=== PATIENT | female | born 1985 | race Caucasian/White ===

== ENCOUNTER 2023-07-01 10:10 | Emergency (ER) | payer BC, SELFPAY ==
[2023-07-01 10:12] VITALS: BP 115/77
[2023-07-01 11:01] VITALS: BP 115/62
[2023-07-01 11:03] VITALS: BMI 22.9
[2023-07-01 11:09] LABS: % Basophils 0.7 % (0-2); % Eosinophils 0.7 % (0-6); % Immature Granulocytes 0.2 % (0-0.5); % Lymphocytes 35.1 % (20.5-51.1); % Monocytes 6.1 % (1.7-9.3); % Neutrophils 57.2 % (42.2-75.2); Absolute Lymphocytes 1.5 10^3/uL (1.2-3.4); Absolute Monocytes 0.3 10^3/uL (0.1-0.6); Absolute Neutrophils 2.4 10^3/uL (1.4-6.5); Hematocrit 35.8 % (37.0-47.0); Hemoglobin 12.4 g/dL (12.0-16.0); Mean Corp Hgb Conc. 34.6 g/dL (33.0-37.0); Mean Corpuscular Hgb 28.8 pg (27.0-31.0); Mean Corpuscular Volume 83.1 fL (81.0-99.0); Mean Platelet Volume 10.5 fL (7.4-10.4); Nucleated Red Blood Cells % 0 %; Platelet Count 164 10^3/uL (130-400); Red Blood Cell Count 4.31 10^6/uL (4.20-5.40); Red Cell Dist. Width 13.8 % (11.5-14.5); White Blood Cell Count 4.3 10^3/uL (4.8-10.8)
[2023-07-01 11:23] LABS: ALT (SGPT) 20 U/L (0-35); AST (SGOT) 26 U/L (14-36); Albumin 4.2 g/dl (3.5-5.0); Alkaline Phosphatase 47 U/L (38-126); Blood Urea Nitrogen 13 mg/dl (7-17); Calcium 9.7 mg/dl (8.4-10.2); Carbon Dioxide 24 mmol/L (22-30); Chloride 106 mmol/L (98-107); Estimated Creatinine Clearance > 125 ml/min; Glucose 95 mg/dl (70-99); Sodium 135 mmol/L (135-145); eGFR > 60.00
--- NOTE | 2023-07-01 11:45 | ED.GENMED ---
History of Present Illness
General
Chief Complaint: Numbness
Source: patient
Exam Limitations: none
Time Seen by Provider: 07/01/23 11:02
Nursing documentation reviewed up to this point in time: agreed with
Travel History
Have you had any contact with someone who has COVID-19?: No
Do you have any symptoms of coronavirus? Fever > 100 degrees, chills, cough, shortness of breath, sore throat, loss of taste or smell, muscle aches, or headache?: No
History of Present Illness
History of Present Illness:
37-year-old female with a history of Wenke Bach
but has been cleared by cards
here with left shoulder pain and some numbness this morning when she woke
she feelss it mostly in the shoulder and slightly in the left forearm as well (numbness)
she has no neck pain but does have chronic 'loss of lordosis in my neck.' but no known DDD
she has not hda fever, chills, weakness, cp, sob
but she did also feel like her heart rate may have been elevated, though she checked her apple watch and it wa snormal
she wanted to be checked because of her av block history
pt also recnetly had a bite in her left wrist that she went to for, because there was a small black spot in it
they dug it out and the following day she had some redness aroudn it so she was put empirically on doxy while they wait for lyme titer
no h/o lyme in the past
no syncope, fever, chills.
Past History
Past History
ED Past Medical History: Arrthythmia (Wenchkebach ) and Other (Ulcers)
ED Past Surgical History: Gynecological (Endometriosis surgery, Ovarian cyst) and Other (Skin removal from abd. )
Social History
Tobacco: Non-smoker
Alcohol: None
Personal:
Living: with family
Review of Systems
Review of Systems
Allergies reviewed?: Yes
All Other Systems: Not applicable
Phy Exam
Physical Exam
Physical Exam:
GENERAL: Alert , in no apparent distress
HEAD: NCAT
EYE: pupils equal and reactive, no nystagmus, no photophobia
NECK: Supple,full rom, nontender midline, mild L trapezius tenderness
ENT: o/p clr, mmm.
CARDIAC: Regular rate and rhythm . no edema no murmur
LUNGS: Clear breath sounds bilaterally, no acute respiratory distress, no wheezes/rales/rhonchi
ABDOMEN: Soft, without focal tenderness, no r/g, no cvat
NEUROLOGICAL: Alert and orientedx 4, cn intact, no facial asymmetry, 5/5 strength in UE/LE, sensation intact, romberg neg, ambulates without assistance, neg pronator drift
SKIN: Warm and dry, skin intact.
MUSCULOSKELETAL: No edema, well perfused.
LUE normal inspection, notnender
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
no swellign
perfused
PSYCH: Normal and appropriate interaction.
Course
Orders/Labs/Results
Orders:
Orders
07/01/23 10:14
ECG [Electrocardiogram (*1)] Urgent
Reason for Study: Palpitations
EKG- Treatment ONCE
07/01/23 11:04
CMP [Comprehensive Metabolic Panel] Urgent
Complete Blood Count/With Diff Urgent
07/01/23 11:42
D-Dimer Urgent
Troponin I Urgent
07/01/23 12:22
CR Chest - 2 Views Urgent
Comment:
Reason For Exam: recent covid, left shoulder pain
Abnormal Lab Results
07/01/23
11:04
WBC 4.3 L 10^3/uL
(4.8-10.8)
Hct 35.8 L %
(37.0-47.0)
MPV 10.5 H fL
(7.4-10.4)
07/01/23 11:04
07/01/23 11:04
Vital Signs
Initial and Last Documented VS:
Initial Vital Signs
Temp Pulse Resp BP Pulse Ox
98.2 F 76 20 115/77 98
07/01/23 10:12 07/01/23 10:12 07/01/23 10:12 07/01/23 10:12 07/01/23 10:12
Last Documented Vital Signs
Temp Pulse Resp BP Pulse Ox
98.2 F 73 20 106/81 100
07/01/23 10:12 07/01/23 12:15 07/01/23 10:12 07/01/23 12:00 07/01/23 12:15
MDM/Problems Addressed
Differential Diagnosis Includes:
paresthesia, lyme disease, DDD, cervical radiculopathy
MDM/Problems Addressed:
37-year-old female with a history of Wenke Bach presents for waking up and feeling like her left arm was numb and her upper arm region where her shoulders along with some discomfort. She is not having any neck pain, headache, change in mental
status, weakness, chest pain or shortness of breath. She did feel like her heart was racing a little bit but checked her heart rate and it was normal. She does started on doxycycline empirically for possible tick bite but has not gotten any
confirmation regarding her Lyme disease test yet. On exam the patient has normal inspection of her neck and shoulder and arm without any objective sensory or strength deficits. Her heart rates in the 80s and her EKG is in sinus rhythm without any
AV block. She has full painless range of motion of her neck but slight tenderness of her left trapezius muscle.
Her workup was fairly unremarkable, her white count was slightly low at 4.3 but her electrolytes and D-dimer and troponin were all normal. Her chest x-ray was independently reviewed by me and negative. Suspect the patient just had some
radiculopathy symptoms however she could have Lyme disease as a cause for the symptoms. She is already on the treatment and thus does not require any additional treatment at that time.
*Critical Care Note
Total Time (30-74mins, 75-104mins- exclusive of procedures): Not Applicable
ED Attending Note
-
Portions of this chart may have been created with voice recognition software.� Occasional wrong word or��sound alike� substitutions may have occurred due to the inherent limitations of voice recognition software.
Discharge Plan
Departure
Patient Disposition: Home (Routine Discharge)
Date of Disposition: 07/01/23
Time of Disposition: 13:41
Patient with high blood pressure during this ER visit?: No
Condition: Fair
Covid-19: Not Applicable
Discharge Problem:
Paresthesia
Instructions: Paresthesia (DC)
Prescriptions:
No Action
ondansetron 4 mg tablet,disintegrating
4 mg PO Q8H PRN (Reason: nausea and vomiting) Qty: 7 0RF
Referrals:
UNKNOWN,NO INTERVIEW [Family Provider] -
Activity Restrictions/Additional Instructions:
We are not sure the cause of your symptoms but it could be a pinched nerve in your neck or shoulder. It also could be symptoms of Lyme disease. Continue your Lyme disease treatment
Your electrolytes, heart enzyme, EKG, D-dimer test to rule out a blood clot were all negative. Your chest x-ray was clear.
Return for any worsening symptoms like arm weakness, severe numbness, severe pain, shortness of breath or any concerns
Interventions
Interventions:
*Risk Screen - Suicide Last Done: 07/01/23 11:09
*General Assessment Last Done: 07/01/23 11:09
*Neglect/Abuse Screening Last Done: 07/01/23 11:09
ED- Fall Risk Assessment Last Done: 07/01/23 11:09
*ED COVID-19 Vaccine History Last Done: 07/01/23 10:12
*Nursing Disposition Last Done: 07/01/23 14:02
ED- Neurological Assessment Last Done: 07/01/23 11:09
Discharge Date and Time
Discharge Date/Time: 07/01/23 14:03
Print Language: ALBANIAN
[2023-07-01 12:00] VITALS: BP 106/81
[2023-07-01 12:11] LABS: Troponin I < 0.012 ng/ml
[2023-07-01 12:17] LABS: D-Dimer 0.45 ug/mlFEU (0.00-0.50)
== END 2023-07-01 14:03 | disposition home or self-care (01) ==
LOC: EMR 10:10
PROVIDERS: Physician Assistant; EMERGENCY PHYSICIAN Emergency Medicine
DX: R20.2 Paresthesia of skin (principal)
CPT/HCPCS: 99283; 71046; 80053; 84484; 85025; 85379; 93005

== ENCOUNTER 2024-03-04 09:56 | Emergency (ER) | payer BC, SELFPAY ==
[2024-03-04 10:07] VITALS: BP 116/79
--- NOTE | 2024-03-04 11:23 | ED.GENMED ---
History of Present Illness
General
Chief Complaint: Abdominal Pain
Exam Limitations: none
Time Seen by Provider: 03/04/24 11:22
Nursing documentation reviewed up to this point in time: agreed with
History of Present Illness
History of Present Illness:
Patient is a 38-year-old female who presents to the ER for evaluation of abdominal pain. Patient started with right lower abdominal pain 5 days ago. It is worse when she walks. She does report she started with her period 5 days ago and had a lot
of cramping. She does have endometriosis. She has nauseous but has not vomited.
Past History
Past History
ED Past Medical History: Arrthythmia (Wenchkebach ) and Other (Ulcers)
ED Past Surgical History: Gynecological (Endometriosis surgery, Ovarian cyst) and Other (Skin removal from abd. )
Social History
Tobacco: Non-smoker
Alcohol: None
Personal:
Living: with family
Review of Systems
Review of Systems
Allergies reviewed?: Yes
All Other Systems: ROS reviewed and negative except as documented in HPI and ROS
Constitutional: Reports no symptoms
ABD/GI: Reports abdominal pain; Denies nausea or vomiting
: Reports no symptoms and other (+ menses started 5 d ago )
Musculoskeletal: Reports no symptoms
Skin: Reports no symptoms
Neurological: Reports no symptoms
Psychiatric: Reports no symptoms
Phy Exam
General Physical Exam
General Presentation: no apparent distress
General age: appears stated age
General Skin: warm and dry
General Habitus: normal
General Mental: alert
General Hydration: appears well hydrated
Gastrointestinal Exam
Gastrointestinal Exam: soft and other (mild lower abdominal tenderness ; no guarding no rebound )
Neurological Exam
Neurological Exam: alert and oriented x3
Musculoskeletal Exam
Musculoskeletal Exam: full ROM
Skin Exam
Skin Exam: normal color and warm/dry
Psychiatric Exam
Psychiatric Exam: normal mood/affect
Course
Orders/Labs/Results
Orders:
Orders
03/04/24 11:46
Test Result ONCE
US Pelvis Only (non-obstetric) Urgent
Comment:
Reason For Exam: rlq pain
03/04/24 11:53
0.9% Sodium Chloride 1000 ml [Nss] 1,000 ml IV BOLUS
03/04/24 12:01
Complete Blood Count/With Diff Urgent
Comprehensive Metabolic Panel Urgent
HCG, Serum Qualitative Screen Urgent
03/04/24 12:46
US Abdomen - Appendix Only Urgent
Comment:
Reason For Exam: rlq pain
03/04/24 13:45
Urinalysis Reflex To Culture Urgent
Specimen Description:
Date Specimen was Collected: 03/04/24
Time Specimen was Collected: 13:42
03/04/24 13:52
CT Abd/pel W Iv And Oral Contr Urgent
Comment:
Reason For Exam: rlq pain
Iohexol [Omnipaque] See Protocol PO NOW STA
Abnormal Lab Results
03/04/24
12:01
WBC 3.3 L 10^3/uL
(4.8-10.8)
MCHC 32.9 L g/dL
(33.0-37.0)
MPV 10.9 H fL
(7.4-10.4)
Absolute Lymphs (auto) 1.1 L 10^3/uL
(1.2-3.4)
03/04/24 12:01
03/04/24 12:01
Vital Signs
Initial and Last Documented VS:
Initial Vital Signs
Temp Pulse Resp BP Pulse Ox
97.9 F 76 16 116/79 98
03/04/24 10:07 03/04/24 10:07 03/04/24 10:07 03/04/24 10:07 03/04/24 10:07
Last Documented Vital Signs
Temp Pulse Resp BP Pulse Ox
97.9 F 76 16 116/79 98
03/04/24 10:07 03/04/24 10:07 03/04/24 10:07 03/04/24 10:07 03/04/24 10:07
MDM/Problems Addressed
Differential Diagnosis Includes:
Not limited to endometriosis, ovarian cyst, appendicitis, less likely diverticulitis
MDM/Problems Addressed:
Patient is a 38-year-old female who presents with lower abdominal pain across the lower abdomen and to the right lower quadrant. She does have a history of endometriosis. Initial ultrasounds were done including pelvic ultrasound and appendix
ultrasound. Ultrasound of the pelvis is unremarkable with normal appearance of the uterus and ovaries. Appendix is not visualized ultrasound order CT with oral and IV contrast.
1625: Care of pt at this time transferred to [facility].
Chronic conditions affecting care:
Endometriosis
*Radiology
Radiology exam reviewed: radiology read reviewed
*Pulse Oximetry
Patient hypoxic: no
*Critical Care Note
Total Time (30-74mins, 75-104mins- exclusive of procedures): Not Applicable
ED Attending Note
-
Portions of this chart may have been created with voice recognition software.� Occasional wrong word or��sound alike� substitutions may have occurred due to the inherent limitations of voice recognition software.
Discharge Plan
Departure
Patient Disposition: Home (Routine Discharge)
Date of Disposition: 03/04/24
Time of Disposition: 17:08
Patient with high blood pressure during this ER visit?: No
Condition: Good
Discharge Problem:
Abdominal pain
Instructions: Abdominal Pain
Prescriptions:
No Action
ondansetron 4 mg tablet,disintegrating
4 mg PO Q8H PRN (Reason: nausea and vomiting) Qty: 7 0RF
Referrals:
Jesse Castillo MD [Family Provider] - As needed
Activity Restrictions/Additional Instructions:
As we discussed, your workup here today shows nothing worrisome.
Ibuprofen 600 mg, with food, every 6 hours as needed for pain
Interventions
Interventions:
*Risk Screen - Suicide Last Done: 03/04/24 10:07
*General Assessment Last Done: 03/04/24 10:07
*Neglect/Abuse Screening Last Done: 03/04/24 10:07
*Nursing Disposition Last Done: 03/04/24 17:18
ND-Xonthb-Yqlsphledn Assessment Last Done: 03/04/24 12:03
Discharge Date and Time
Discharge Date/Time: 03/04/24 17:19
Print Language: PERSIAN
[2024-03-04 12:03] VITALS: BMI 23.2
[2024-03-04] MEDS: NSS 1000 IV (12:11)
[2024-03-04 12:15] LABS: % Basophils 0.6 % (0-2); % Eosinophils 0.9 % (0-6); % Immature Granulocytes 0.3 % (0-0.5); % Lymphocytes 31.4 % (20.5-51.1); % Monocytes 5.4 % (1.7-9.3); % Neutrophils 61.4 % (42.2-75.2); Absolute Lymphocytes 1.1 10^3/uL (1.2-3.4); Absolute Monocytes 0.2 10^3/uL (0.1-0.6); Absolute Neutrophils 2.1 10^3/uL (1.4-6.5); Hematocrit 39.2 % (37.0-47.0); Hemoglobin 12.9 g/dL (12.0-16.0); Mean Corp Hgb Conc. 32.9 g/dL (33.0-37.0); Mean Corpuscular Hgb 27.9 pg (27.0-31.0); Mean Corpuscular Volume 84.8 fL (81.0-99.0); Mean Platelet Volume 10.9 fL (7.4-10.4); Nucleated Red Blood Cells % 0 %; Platelet Count 173 10^3/uL (130-400); Red Blood Cell Count 4.62 10^6/uL (4.20-5.40); Red Cell Dist. Width 13.1 % (11.5-14.5); White Blood Cell Count 3.3 10^3/uL (4.8-10.8)
[2024-03-04 12:42] LABS: ALT (SGPT) 23 U/L (0-35); AST (SGOT) 31 U/L (14-36); Albumin 4.7 g/dl (3.5-5.0); Alkaline Phosphatase 44 U/L (38-126); Blood Urea Nitrogen 9 mg/dl (7-17); Calcium 9.5 mg/dl (8.4-10.2); Carbon Dioxide 25 mmol/L (22-30); Chloride 101 mmol/L (98-107); Estimated Creatinine Clearance > 125 ml/min; Glucose 87 mg/dl (70-99); Potassium 3.9 mmol/L (3.5-5.1); Sodium 139 mmol/L (135-145); Total Protein 7.8 g/dl (6.3-8.2); eGFR > 60.00
[2024-03-04 12:56] LABS: HCG, Serum Qualitative Screen Negative
[2024-03-04 13:52] LABS: Urine Albumin Negative (Neg - Trace); Urine Bilirubin Negative (Negative); Urine Character Clear (Clear); Urine Color Straw; Urine Glucose Negative (Negative); Urine Ketone Negative (Negative); Urine Leukocyte Negative (Negative); Urine Nitrite Negative (Negative); Urine Occult Blood Negative (Negative); Urine Specific Gravity 1.005 (<1.030); Urine Urobilinogen Negative (Neg - 1+)
[2024-03-04] MEDS: OMNIPAQUE 50 ML PO (14:21)
== END 2024-03-04 17:19 | disposition home or self-care (01) ==
LOC: EMR 09:56
PROVIDERS: Nurse Practitioner; EMERGENCY PHYSICIAN Emergency Medicine; FAMILY PHYSICIAN Internal Medicine
DX: R10.31 Right lower quadrant pain (principal); N80.9 Endometriosis, unspecified
CPT/HCPCS: 96360; 99284; 74177; 76705; 76856; 80053; 81003; 84703; 85025; Q9967